=== PATIENT | male | born 1995 | race Caucasian/White ===

== ENCOUNTER 2023-08-01 10:24 | Emergency (ER) | payer OTHER ==
[~2023-08-01] VITALS: Ht 165.1 cm; Wt 154.2 kg
[2023-08-01 10:34] VITALS: BP_SYST 159; PULSE 85; RESP 22; TEMP 98.3; O2SAT 98
[2023-08-01] MEDS ORDERED: LIDOCAINE 1% 10 MG/ML, 20 ML MDV INJ ONE (10:45)
[2023-08-01] MEDS ORDERED: BACITRACIN 1 GM OINT TP ONE ×2 (10:45→11:46)
[2023-08-01 11:59] VITALS: PULSE 84; RESP 20; TEMP 97.8
== END 2023-08-01 11:53 | disposition home or self-care (01) ==
LOC: SED 10:24
DX: S61.213A Laceration without foreign body of left middle finger without damage to nail, initial encounter (principal); Z79.899 Other long term (current) drug therapy; W31.2XXA Contact with powered woodworking and forming machines, initial encounter; Y93.89 Activity, other specified; Y92.89 Other specified places as the place of occurrence of the external cause; Y99.8 Other external cause status
CPT/HCPCS: 99283; 73140; 12002; J2001